=== PATIENT | female | born 1975 | race Caucasian/White ===

== ENCOUNTER 2019-01-25 16:05 | Emergency (ER) | payer OTHER ==
[~2019-01-25 16:05] MED LIST: Atropine 0.1 MG/ML 10 ML Syringe IVPUSH ONE
[2019-01-25 16:22] VITALS: BP 91/46
[2019-01-25] MEDS ORDERED: Sodium Chloride 0.9% 10 ML Syringe FLUSH PRN (16:30)
[2019-01-25] MEDS ORDERED: Sodium Chloride 0.9% 1,000 ML IV SCH ×2 (16:30→18:45)
[2019-01-25] MEDS ORDERED: Atropine 0.4 MG/ML SDV IVPUSH ONE ×2 (17:47→18:52)
[2019-01-25] MEDS ORDERED: Atropine 0.1 MG/ML 10 ML Syringe ONE (17:51)
--- NOTE | 2019-01-25 18:23 | CT ---
Head CT Technique: Multiple axial sections were obtained as contrast was not utilized. Comparison: Head CT exam of 01/20/16. Findings: Ventricles along with basal cisterns and sulci over the convexities are within normal limits for the patient's age. No abnormal parenchymal densities are seen. No evidence of intracranial hemorrhage. No midline shift or mass effect is seen. Bone window settings were reviewed which shows no acute calvarial abnormality. Visualized sinuses are clear. Impression: 1. Nothing acute is appreciated on noncontrast head CT exam. No significant change is seen from previous study. Diagnostic code #1
[2019-01-25] MEDS ORDERED: HYDROmorphone 0.5 MG/0.5 ML Syringe IVPUSH ONE (18:51)
[2019-01-25] MEDS ORDERED: LORazepam 2 MG/ML SDV IVPUSH ONE (18:55)
[2019-01-25] MEDS ORDERED: Atropine 0.1 MG/ML 10 ML Syringe IVPUSH ONE (18:55)
--- NOTE | 2019-01-25 18:58 | EDM.PDOC ---
ED HPI GENERAL MEDICAL PROBLEM - General Chief Complaint: Cardiovascular Problem Stated Complaint: LOW BLOOD PRESSURE EARS RINGING Time Seen by Provider: 01/25/19 16:17 Source of Information: Reports: Patient, Family History Limitations: Reports: No Limitations - History of Present Illness INITIAL COMMENTS - FREE TEXT/NARRATIVE: The patient presents with her for low heart rate, lightheadedness, headache, and hypotension. This has been going on for a couple days. She has generalized weakness also. She has no fever, chills, cough, chest pain or shortness of breath. She went with her to [place] to look at their horses and she could not walk 100 feet. She had to sit down and she had a bad headache. She had something similar to this happen 6 weeks ago. She was seen at [facility] in [place] and she was admitted. She was on clonidine at that time and they took her off of that and she did better in a few days. She is only on zoloft and larazapam and she has not taken more of them. She has decreased hearing also. She has a dilated right pupil. She has had that for years and it has been worked up back in [place]. It sounds like she had an MRI that was normal. She is scheduled to see a neuro opthamologist in FebruaryFebruary 11. She does have a generalized headache with generalized weakness. She has no more weakness on 1 side or the other. Onset: Gradual Duration: Day(s): (2) Location: Reports: Head Quality: Reports: Pressure Severity: Moderate Improves with: Reports: None Worsens with: Reports: None Associated Symptoms: Reports: Headaches. Denies: Chest Pain, Cough, Fever/ Chills, Nausea/Vomiting, Shortness of Breath - Related Data Allergies Allergy/AdvReac Type Severity Reaction Status Date / Time Sulfa (Sulfonamide Allergy Hives Verified 01/25/19 16:22 Antibiotics) Home Meds: Home Meds . 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 Denies: Fever, Chills HEENT: Reports: Other (decreased hearing) Respiratory: Reports: No Symptoms Cardiovascular: Reports: Lightheadedness Endocrine: Reports: Fatigue GI/Abdominal: Reports: No Symptoms : Reports: No Symptoms Musculoskeletal: Reports: No Symptoms ED EXAM, GENERAL - Physical Exam Exam: See Below Exam Limited By: No Limitations General Appearance: Alert, No Apparent Distress Eye Exam: Bilateral Eye: Other (Right pupil is dilated and nonreactive) Ears: Normal External Exam Nose: Normal Inspection Head: Atraumatic, Normocephalic Neck: Normal Inspection, Supple, Non-Tender Respiratory/Chest: No Respiratory Distress, Lungs Clear, Normal Breath Sounds Cardiovascular: No Edema, No Murmur, Bradycardia GI/Abdominal: Soft, Non-Tender, No Organomegaly, No Mass Back Exam: Normal Inspection Extremities: Normal Inspection Neurological: Alert, Oriented, No Motor/Sensory Deficits EKG INTERPRETATION EKG Date: 01/25/19 Time: 16:43 Rhythm: Other (sinus bradycardia) Rate (Beats/Min): 41 [place]: Normal P-Wave: Present QRS: Normal ST-T: Normal QT: Normal EKG Interpretation Comments: Q waves in the anterior leads Course - Vital Signs Last Recorded V/S: Last Vital Signs Temp 97.6 F 01/25/19 16:15 Pulse 40 L 01/25/19 16:15 Resp 16 01/25/19 16:15 BP 91/46 L 01/25/19 16:15 Pulse Ox 96 01/25/19 16:15 - Orders/Labs/Meds Orders: Active Orders 24 hr Category Date Time Status Cardiac Monitoring [RC] . DIRECTED Care 01/25/19 16:30 Active EKG Documentation Completion [RC] STAT Care 01/25/19 16:32 Active Peripheral IV Care [RC] . DIRECTED Care 01/25/19 16:30 Active HYDROmorphone [Dilaudid] Med 01/25/19 18:51 Once 0.5 mg IVPUSH ONETIME ONE Sodium Chloride 0.9% [Normal Saline] 1,000 ml Med 01/25/19 16:30 Active IV .BOLUS Sodium Chloride 0.9% [Normal Saline] 1,000 ml Med 01/25/19 18:45 Active IV ASDIRECTED Sodium Chloride 0.9% [Saline Flush] Med 01/25/19 16:30 Active 10 ml FLUSH ASDIRECTED PRN Peripheral IV Insertion Adult [OM.PC] Stat Oth 01/25/19 16:30 Ordered Medication Orders Hydromorphone HCl (Dilaudid) 0.5 mg IVPUSH ONETIME ONE Stop: 01/25/19 18:52 Sodium Chloride (Normal Saline) 1,000 mls @ 1,000 mls/hr IV .BOLUS [place] Last Admin: 01/25/19 16:40 Dose: 1,000 mls/hr Sodium Chloride (Normal Saline) 1,000 mls @ 150 mls/hr IV ASDIRECTED [place] Last Admin: 01/25/19 18:48 Dose: 150 mls/hr Sodium Chloride (Saline Flush) 10 ml FLUSH ASDIRECTED PRN PRN Reason: Keep Vein Open Last Admin: 01/25/19 16:42 Dose: 10 ml Labs: Laboratory Tests 01/25/19 01/25/19 Range/Units 16:30 16:30 WBC 8.94 (3.98-10.04) K/mm3 RBC 4.19 (3.98-5.22) M/mm3 Hgb 12.7 D (11.2-15.7) gm/L Hct 38.5 (34.1-44.9) % MCV 91.9 (79.4-94.8) fl MCH 30.3 (25.6-32.2) pg MCHC 33.0 (32.2-35.5) g/dl RDW Std Deviation 43.9 (36.4-46.3) fL Plt Count 296 (182-369) K/mm3 MPV 10.3 (9.4-12.3) fl Neut % (Auto) 59.2 (34.0-71.1) % Lymph % (Auto) 27.1 (19.3-51.7) % [place] % (Auto) 8.8 (4.7-12.5) % Eos % (Auto) 4.5 (0.7-5.8) Baso % (Auto) 0.3 (0.1-1.2) % Neut # (Auto) 5.29 (1.56-6.13) K/mm3 Lymph # (Auto) 2.42 (1.18-3.74) K/mm3 [place] # (Auto) 0.79 H (0.24-0.36) K/mm3 Eos # (Auto) 0.40 H (0.04-0.36) K/mm3 Baso # (Auto) 0.03 (0.01-0.08) K/mm3 Sodium 133 L (136-145) mEq/L Potassium 4.0 (3.5-5.1) mEq/L Chloride 101 (98-107) mEq/L Carbon Dioxide 24 (21-32) mEq/L Anion Gap 12.0 (5-15) BUN 34 H (7-18) mg/dL Creatinine 1.2 H (0.55-1.02) mg/dL Est Cr Clr Drug Dosing TNP Estimated GFR (MDRD) 49 (>60) mL/min BUN/Creatinine Ratio 28.3 H (14-18) Glucose 215 H (74-106) mg/dL Calcium 9.4 (8.5-10.1) mg/dL Magnesium 1.9 (1.8-2.4) mg/dl Total Bilirubin 0.2 (0.2-1.0) mg/dL AST 51 H (15-37) U/L ALT 67 H (14-59) U/L Alkaline Phosphatase 92 (46-116) U/L Troponin I < 0.017 (0.00-0.056) ng/mL Total Protein 6.4 (6.4-8.2) g/dl Albumin 3.5 (3.4-5.0) g/dl Globulin 2.9 gm/dL Albumin/Globulin Ratio 1.2 (1-2) TSH 3rd Generation 1.486 (0.358-3.74) uIU/mL Ethyl Alcohol 0.00 (0.00) gm% Meds: Medications Generic Name Dose Route Start Last Admin Trade Name Freq PRN Reason Stop Dose Admin Hydromorphone HCl 0.5 mg 01/25/19 18:51 Dilaudid IVPUSH 01/25/19 18:52 ONETIME ONE Sodium Chloride 1,000 mls @ 1,000 mls/hr 01/25/19 16:30 01/25/19 16:40 Normal Saline IV 1,000 mls/hr .BOLUS [place] Administration Sodium Chloride 1,000 mls @ 150 mls/hr 01/25/19 18:45 01/25/19 18:48 Normal Saline IV 150 mls/hr ASDIRECTED [place] Administration Sodium Chloride 10 ml 01/25/19 16:30 01/25/19 16:42 Saline Flush FLUSH 10 ml ASDIRECTED PRN Administration Keep Vein Open Discontinued Medications Generic Name Dose Route Start Last Admin Trade Name Trinh PRN Reason Stop Dose Admin Atropine Sulfate 0.5 mg 01/25/19 17:47 01/25/19 18:07 Atropine IVPUSH 01/25/19 17:48 Not Given ONETIME ONE Atropine Sulfate Confirm 01/25/19 17:51 01/25/19 18:07 Atropine 0.1 Mg/Ml Administered 01/25/19 17:52 Not Given Dose 1 mg .ROUTE .STK-MED ONE Atropine Sulfate 0.5 mg 01/25/19 07:59 01/25/19 17:59 Atropine 0.1 Mg/Ml IVPUSH 01/25/19 08:00 0.5 mg ONETIME ONE Administration - Re-Assessments/Exams Free Text/Narrative Re-Assessment/Exam: 01/25/19 19:00 I ordered an IV NS 1L bolus, EKG, CT of her head, and labs. Her EKG shows a sinus bradycardia with no acute changes. Her CT shows nothing acute. Her CBC is normal. Her Na is a little low at 133. Her creatinine is elevated at 1.2. Her glucose is elevated at 215. Her AST is elevated slightly at 51. Her ALT was elevated slightly at 67. He TSH was normal. Her BP when she came in was in the 90s. I ordered a liter bolus and that did not help at all. Her BP went down in to the upper 80s and her heart rate went down to 37 to 38. I ordered a dose of atropine 0.5g IV and her heart rate came up in the 50s and 60s and her BP went up into the 124 range systolic. She felt better. I feel this patient needs to go see cardiology. She may need a pacemaker. There may also bee something going on with her eyes and she may need an MRI. She also says she was seeing [facility] for a GI problem of colitis. They put her on doxycycline recently for bacterial overgrowth. I called [facility] and talked with Dr Mcneil in the ER and he agreed to the transfer. Departure - Departure Time of Disposition: 19:10 Disposition: DC/Tfer to Acute Hospital 02 Reason for Transfer *Q: Other Condition: Serious Clinical Impression: Symptomatic bradycardia, Lightheaded, Fixed dilated pupil of right eye, Generalized weakness Headache Qualifiers: Headache type: unspecified Headache chronicity pattern: acute headache Intractability: not intractable Qualified Code(s): R51 - Headache Referrals: Ruma Gonzalez NP [Primary Care Provider] - - My Orders Last 24 Hours: My Active Orders 01/25/19 16:30 Cardiac Monitoring [RC] . DIRECTED Peripheral IV Care [RC] . DIRECTED Sodium Chloride 0.9% [Normal Saline] 1,000 ml IV .BOLUS Sodium Chloride 0.9% [Saline Flush] 10 ml FLUSH ASDIRECTED PRN Peripheral IV Insertion Adult [OM.PC] Stat 01/25/19 16:32 EKG Documentation Completion [RC] STAT 01/25/19 18:45 Sodium Chloride 0.9% [Normal Saline] 1,000 ml IV ASDIRECTED 01/25/19 18:51 HYDROmorphone [Dilaudid] 0.5 mg IVPUSH ONETIME ONE - Assessment/Plan Last 24 Hours: My Active Orders 01/25/19 16:30 Cardiac Monitoring [RC] . DIRECTED Peripheral IV Care [RC] . DIRECTED Sodium Chloride 0.9% [Normal Saline] 1,000 ml IV .BOLUS Sodium Chloride 0.9% [Saline Flush] 10 ml FLUSH ASDIRECTED PRN Peripheral IV Insertion Adult [OM.PC] Stat 01/25/19 16:32 EKG Documentation Completion [RC] STAT 01/25/19 18:45 Sodium Chloride 0.9% [Normal Saline] 1,000 ml IV ASDIRECTED 01/25/19 18:51 HYDROmorphone [Dilaudid] 0.5 mg IVPUSH ONETIME ONE
== END 2019-01-25 19:20 ==
LOC: JD.ED 16:05
DX: R42 Dizziness and giddiness (principal); R00.1 Bradycardia, unspecified; R53.1 Weakness; H57.04 Mydriasis; R51 Headache; Z88.2 Allergy status to sulfonamides
CPT/HCPCS: 36415; 70450; 80053; 83735; 84443; 84484; 85025; 93005; 96361; 96374; 96375; 96376; 99285; G0480; J0461; J1170; J2060; J7040; 93010; 99284

== ENCOUNTER 2019-06-28 17:22 | Emergency (ER) | payer OTHER ==
[2019-06-28 17:37] VITALS: BP 134/84; PULSE 61
[2019-06-28] MEDS ORDERED: HYDROmorphone 0.5 MG/0.5 ML Syringe IM ONE (18:59)
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
--- NOTE | 2019-06-29 13:46 | CT ---
CT lumbar spine Technique: Multiple axial sections were obtained from the top of T12 inferiorly through the L5-S1 disc. Comparison: Previous CT lumbar spine study of 04/21/19. Findings: Anterior wedging with superior compression fracture noted within T12. This is noted on previous exam No additional lumbar spine fracture is seen. Mild circumferential disc bulge is noted at L3-L4 and at L4-L5. No focal disc herniation is seen. No central canal stenosis or neural foraminal stenosis is seen. Nonobstructing calculus noted within the right kidney measuring 6.7 mm. Impression: 1. Stable compression fracture within the superior endplate of T12 causing mild anterior wedging. 2. Mild disc bulging as noted above. Nonobstructing stone is noted within the right kidney. 3. No acute abnormality is seen. Diagnostic code #3 I agree with preliminary report from [facility], finalized on 06/28/19, 9:02 PM Central Time
== END 2019-06-28 21:05 | disposition home or self-care (01) ==
LOC: JD.ED 17:22
DX: M54.5 Low back pain (principal); F41.9 Anxiety disorder, unspecified; F32.9 Major depressive disorder, single episode, unspecified; Z90.49 Acquired absence of other specified parts of digestive tract; Z90.710 Acquired absence of both cervix and uterus; F17.210 Nicotine dependence, cigarettes, uncomplicated; Z88.2 Allergy status to sulfonamides; Z79.899 Other long term (current) drug therapy
CPT/HCPCS: 72131; 96372; 99284; J1170